=== PATIENT | female | born 1985 | race Caucasian/White ===

== ENCOUNTER 2016-11-12 12:02 | Emergency (ER) | payer MEDICARE, MEDICAID ==
[~2016-11-12] VITALS: Ht 157.5 cm; Wt 99.8 kg
[2016-11-12] MEDS: LIDO:MAALOX:DONNATAL 1:1:1 15 ML SINGLE DOSE SWSW ONE ×2 (13:00→13:24)
[2016-11-12] MEDS ORDERED: ONDANSETRON ODT 4 MG TAB.RAPDIS PO ONE (13:00)
[2016-11-12 13:05] LABS: NEG OBC UR NEG; POS OBC UR POS
[2016-11-12 13:06] LABS: BILIRUBIN,URINE NEGATIVE (NEG); GLUCOSE,URINE NEGATIVE (NEG); NITRITE,URINE NEGATIVE (NEG); PH,URINE 6.5; PROTEIN,URINE NEGATIVE (NEG-TRACE)
[2016-11-12 13:21] LABS: BACTERIA,URINE 0 /HPF (0-FEW); RBC,URINE 0 /HPF (0-2); SQUAMOUS EPITHELIAL CELL,UR MANY /LPF; WBC,URINE 0 /HPF (0-4)
[2016-11-12] MEDS ORDERED: ONDA4TAB10 SL (13:40)
--- NOTE | 2016-11-12 13:40 | PHYS DOC ---
Past Medical History Past Medical History: No Pertinent History Past Surgical History: Other Additional Past Surgical Histo: ear tubes Alcohol Use: Occasionally Drug Use: None Adult General Chief Complaint Chief Complaint: ABDOMINAL PAIN HPI HPI Patient is a 31 year old female who presents with 2 days of sore throat, rhinorrhea, chills and dry cough. Had 2 episodes of emesis this morning associated with crampy abdominal pain. Notes symptoms are improving since last emesis. Has mild nausea and abdominal pain now. She denies measured fever, diarrhea, dysuria, hematuria, chest pain, dyspnea, sick contacts. Review of Systems Review of Systems Constitutional: Denies measured fever [] Eyes: Denies change in visual acuity, redness, or eye pain [] HENT: Denies nasal congestion [] Respiratory: Denies shortness of breath [] Cardiovascular: No additional information not addressed in HPI [] GI: Denies bloody stools or diarrhea [] : Denies dysuria or hematuria [] Musculoskeletal: Denies back pain or joint pain [] Integument: Denies rash or skin lesions [] Neurologic: Denies headache, focal weakness or sensory changes [] Endocrine: Denies polyuria or polydipsia [] Current Medications Current Medications Current Medications Medications (Trade) Dose Ordered Sig/Lm Start Time Stop Time Status Last Admin Dose Admin Multi-Ingredient Mouthwash/Gargle (Gi Cocktail Single Dose) 15 ml 1X ONCE 11/12/16 13:00 11/12/16 13:02 DC Ondansetron HCl (Zofran Odt) 4 mg 1X ONCE 11/12/16 13:00 11/12/16 13:02 DC 11/12/16 13:24 4 MG Potassium Chloride (Klor-Con) 40 meq 1X ONCE 11/12/16 13:45 11/12/16 13:46 DC 11/12/16 13:50 40 MEQ Allergies Allergies Allergies Coded Allergies Type Severity Reaction Last Updated Verified Penicillins Allergy Severe throat swelling 11/12/16 Yes Physical Exam Physical Exam Constitutional: Well developed, well nourished, no acute distress, non-toxic appearance. [] HENT: Normocephalic, atraumatic, bilateral external ears normal, oropharynx moist, no oral exudates, nose normal. [] Eyes: PERRLA, EOMI. [] Neck: Normal range of motion, supple. [] Cardiovascular:Heart rate regular rhythm [] Lungs & Thorax: Bilateral breath sounds clear to auscultation [] Abdomen: Bowel sounds normal, soft, no tenderness. [] Skin: Warm, dry, no erythema, no rash. [] Back: No tenderness, no CVA tenderness. [] Extremities: No tenderness, ROM intact, no edema. [] Neurologic: Alert and oriented X 3, normal motor function, normal sensory function, no focal deficits noted. [] Psychologic: Affect normal, judgement normal, mood normal. [] Current Patient Data Vital Signs Vital Signs Date Time Temp Pulse Resp B/P Pulse Ox O2 Delivery O2 Flow Rate FiO2 11/12/16 14:22 96 16 130/79 99 Room Air 11/12/16 12:42 98.1 98.1 Lab Values Laboratory Tests Test 11/12/16 12:45 11/12/16 13:25 Urine Collection Type Unknown Urine Color Yellow Urine Clarity Clear Urine pH 6.5 Urine Specific [place] 1.025 Urine Protein Negativemg/dL (NEG-TRACE) Urine Glucose (UA) Negativemg/dL (NEG) Urine Ketones (Stick) Negativemg/dL (NEG) Urine Blood Negative (NEG) Urine Nitrite Negative (NEG) Urine Bilirubin Negative (NEG) Urine Urobilinogen Dipstick 1.0mg/dL (0.2 mg/dL) Urine Leukocyte Esterase Negative (NEG) Urine RBC 0/HPF (0-2) Urine WBC 0/HPF (0-4) Urine Squamous Epithelial Cells Many/LPF Urine Bacteria 0/HPF (0-FEW) Urine Mucus Marked/LPF Urine Test Negative (NEG) POC Hemoglobin 11.6g/dL (12-15) L POC Hematocrit 34% (36-40) L POC Sodium 143mmol/L (135-145) POC Potassium 3.3mmol/L (3.5-5.0) L POC Chloride 102mmol/L (98-110) POC Total CO2 27mmol/L (23-32) Anion Gap 18mmol/L (6-14) H POC Blood Urea Nitrogen 6mg/dL (8-26) L POC Creatinine 0.5mg/dL (0.5-1.4) Glucose Level 98mg/dL (70-99) POC Ionized Calcium (Carolin) 1.16mmol/L (1.13-1.32) Laboratory Tests 11/12/16 13:25 Course & Med Decision Making Course & Med Decision Making Pertinent Labs and Imaging studies reviewed. (See chart for details) She appears well on exam. Has mild hypokalemia that was replaced po. She is feeling better after medications. Return precautions given. She understood and agrees with plan. Dragon Disclaimer Dragon Disclaimer This electronic medical record was generated, in whole or in part, using a voice recognition dictation system. Departure Departure Impression: Primary Impression: Nausea and vomiting Additional Impression: Abdominal pain Disposition: HOME, SELF-CARE Condition: STABLE Referrals: NO PCP (PCP) Patient Instructions: Nausea and Vomiting, [id number] Additional Instructions: Take Zofran as needed for nausea. Take Tylenol or ibuprofen as needed for pain. Follow-up with your primary care doctor. Return for any concerns. Scripts Ondansetron (Zofran Odt)4 Mg Tab.rapdis1 Tab SL Q8HRS #10 TAB Prov:Faustino GUTIERREZ MD 11/12/16 Problem Qualifiers Primary Impression: Nausea and vomiting Vomiting type: unspecified Vomiting Intractability: non-intractable Qualified Code: R11.2 - Nausea with vomiting, unspecified Additional Impression: Abdominal pain Abdominal location: left lower quadrant Qualified Code: R10.32 - Left lower quadrant pain Faustino GUTIERREZ MD Nov 12, 2016 13:40
[2016-11-12] MEDS ORDERED: POTASSIUM CHLORIDE 20 MEQ TABLET.ER. PO ONE (13:45)
[2016-11-12 14:22] VITALS: BP 130/79
[2016-11-12 15:02] LABS: POTASSIUM ISTAT 3.3 mmol/L (3.5-5.0)
== END 2016-11-12 14:25 | disposition home or self-care (01) ==
LOC: ER 12:02
DX: R11.2 Nausea with vomiting, unspecified (principal); R10.32 Left lower quadrant pain; J02.9 Acute pharyngitis, unspecified; J34.89 Other specified disorders of nose and nasal sinuses; R68.83 Chills (without fever); R05 Cough; E87.6 Hypokalemia; Z88.0 Allergy status to penicillin
CPT/HCPCS: 80047; 81001; 81025; 99283; Q0162; 99284

== ENCOUNTER 2017-06-19 10:35 | Emergency (ER) | payer MEDICARE, MEDICAID ==
[~2017-06-19] VITALS: Ht 167.6 cm; Wt 117.9 kg
[~2017-06-19 10:35] MED LIST: ONDA4TAB10 SL
--- NOTE | 2017-06-19 11:23 | PHYS DOC ---
Past Medical History Past Medical History: Asthma Past Surgical History: Other Additional Past Surgical Histo: ear tubes Alcohol Use: Occasionally Drug Use: Marijuana Adult General Chief Complaint Chief Complaint: SHORTNESS OF BREATH HPI HPI Patient is a 31 year old F who presents with cough and a sore throat. Patient states that for the past day she had a productive cough and sore throat has smoking history. Patient also complains that her ears hurt bilaterally. Patient states he did transiently be . Patient denies any fevers. Patient denies any chest pain. Patient has no other complaints. Review of Systems Review of Systems GEN: Denies fevers, chills, sweats HEENT: sore throat, ear pain CV: Denies chest pain RESP: cough GI: Denies n/v/d NEURO: Denies confusion, dizziness MSK: Denies weakness, joint pain/swelling Allergies Allergies Allergies Coded Allergies Type Severity Reaction Last Updated Verified Penicillins Allergy Severe throat swelling 11/12/16 Yes Physical Exam Physical Exam GEN.: No apparent distress. Alert and oriented. HEENT: Head is normocephalic, atraumatic, TMs clear bilaterally, posterior pharynx not erythematous and no swollen tonsils with no exudate NECK: Supple. LUNGS: CTAB. HEART: RRR, S1, S2 present. Peripheral pulses intact ABDOMEN: Soft, nontender. Positive bowel sounds. EXTREMITIES: Without any cyanosis. NEUROLOGIC: Normal speech, normal tone PSYCHIATRIC: Normal affect, normal mood. SKIN: No ulcerations Current Patient Data Vital Signs Vital Signs Date Time Temp Pulse Resp B/P (MAP) Pulse Ox O2 Delivery O2 Flow Rate FiO2 06/19/17 11:25 99.1 86 20 99 Room Air 99.1 06/19/17 10:40 148/62 (90) Lab Values Laboratory Tests Test 06/19/17 10:06 06/19/17 11:15 06/19/17 11:30 POC Urine HCG, Qualitative Hcg positive (Negative) Urine Collection Type Unknown Urine Color [place] Urine Clarity Clear Urine pH 5.5 Urine Specific [place] 1.025 Urine Protein Negative mg/dL (NEG-TRACE) Urine Glucose (UA) Negative mg/dL (NEG) Urine Ketones (Stick) Negative mg/dL (NEG) Urine Blood Negative (NEG) Urine Nitrite Positive (NEG) Urine Bilirubin Negative (NEG) Urine Urobilinogen Dipstick 0.2 mg/dL (0.2 mg/dL) Urine Leukocyte Esterase Trace (NEG) Urine RBC Rare /HPF (0-2) Urine WBC 1-4 /HPF (0-4) Urine Squamous Epithelial Cells Few /LPF Urine Bacteria Few /HPF (0-FEW) Urine Mucus Slight /LPF Group A Streptococcus Rapid Negative (NEGATIVE) EKG EKG [] Radiology/Procedures Radiology/Procedures [] Course & Med Decision Making Course & Med Decision Making Pertinent Labs and Imaging studies reviewed. (See chart for details) ED course: Patient was seen and examined emergency room patient states she might be therefore a printed test ordered and a rapid strep screen 1221: Patient was reexamined and explained the patient that since she is we will forego the chest x-ray and treat her with antibiotics for URI however the patient has anaphylaxis to penicillin therefore will prescribe her a Z-Donnie. 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 MDM: After reviewing the chart, CC/HPI/PMH, physical exam, [lab results], I do not believe the patient has a significant rust or infection warranting further workup and admission at this time. Patient is however is having no regnancy-related complications therefore recommended outpatient follow-up and joint for further evaluation and management and pending of care. Patient stable for discharge. Patient be treated with a Z-Donnie for her URI. Additional verbal discharge instructions were provided to the patient and that if symptoms get worse or any new symptoms arise that are worrisome to the patient she is to return to the emergency room immediately [] Dragon Disclaimer Dragon Disclaimer This electronic medical record was generated, in whole or in part, using a voice recognition dictation system. 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
[2017-06-19 11:25] VITALS: BP 154/87
[2017-06-19 11:27] LABS: BILIRUBIN,URINE NEGATIVE (NEG); GLUCOSE,URINE NEGATIVE (NEG); NITRITE,URINE POSITIVE (NEG); PH,URINE 5.5; PROTEIN,URINE NEGATIVE (NEG-TRACE); UROBILINOGEN,URINE 0.2 mg/dL (0.2 mg/dL)
[2017-06-19 11:51] LABS: BACTERIA,URINE FEW /HPF (0-FEW); RBC,URINE RARE /HPF (0-2); SQUAMOUS EPITHELIAL CELL,UR FEW /LPF
[2017-06-19 11:55] LABS: NEGATIVE OBC STREP NEG; POSITIVE OBC STREP POS
--- NOTE | 2017-06-19 11:59 | EKG ---
[facility] [address] [place] [address] Test Date: 2017-06-19 Test Time: 10:49:06 Pat Name: GAGE DAVIS Department: Room: Gender: F Category Planner: : 1985 Requested By: JB MANN Order Number: [id number] Reading MD: Lenin Vivar Measurements Intervals [place] Rate: 97 P: 64 AK: 122 QRS: 74 QRSD: 78 T: 23 QT: 352 QTc: 451 Interpretive Statements SINUS RHYTHM Electronically Signed On 06-24-2017 8:44:11 CDT by Lenin Vivar
[2017-06-19] MEDS ORDERED: AZIT250T PO (12:28)
--- NOTE | 2017-06-24 09:10 | VNOTE ---
CALL BACK NOTE CALL BACK Microbiology 06/19/17 Throat Culture - Final, Complete 06/19/17 - Final, Complete 06/19/17 Urine Culture - Final, Complete 06/19/17 Urine Culture Result 1 (MARIKA) - Final, Complete 06/19/17 Antimicrobic Susceptibility - Final, Complete Patient was notified at [phone] in regards to UTI, patients prescription [facility] to [facility] [address] [facility]. Macrobid 100 mg BID times 7 days. ELSI CASANOVA APPLICATIONS SYSTEMS ANALYST Jun 24, 2017 09:10
== END 2017-06-19 12:35 | disposition home or self-care (01) ==
LOC: ER 10:35
DX: J06.9 Acute upper respiratory infection, unspecified (principal); J45.909 Unspecified asthma, uncomplicated; Z33.1 Pregnant state, incidental; Z88.0 Allergy status to penicillin
CPT/HCPCS: 81001; 81025; 87070; 87086; 87880; 93005; 99285-25

== ENCOUNTER 2017-10-11 01:28 | Emergency (ER) | payer MEDICARE, MEDICAID ==
[2017-10-11 02:17] LABS: BILIRUBIN,URINE SMALL (NEG); GLUCOSE,URINE NEGATIVE (NEG); NITRITE,URINE NEGATIVE (NEG); PROTEIN,URINE NEGATIVE (NEG-TRACE)
[2017-10-11 02:19] LABS: ADD MAN DIFF? NO
[2017-10-11 02:22] LABS: BARBITURATES NEG (NEG); BENZODIAZEPINES NEG (NEG); CANNABINOIDS NEG (NEG); COCAINE NEG (NEG); METHADONE NEG (NEG); OPIATES NEG (NEG); PHENCYCLIDINE NEG (NEG)
[2017-10-11 02:23] LABS: BASO % 1 % (0-3); EOS % 0 % (0-3); LYMPH % 25 % (24-48); MEAN CORPUSCULAR HEMOGLOBIN 25 pg (25-35); MEAN CORPUSCULAR HGB CONC 32 g/dL (31-37); MEAN CORPUSCULAR VOLUME 79 fL (79-100); MONO % 4 % (0-9); NEUT % 71 % (31-73); PLATELET COUNT 178 x10^3/uL (140-400); RED CELL DISTRIBUTION WIDTH 17.4 % (11.5-14.5); WHITE BLOOD COUNT 8.3 x10^3/uL (4.0-11.0)
[2017-10-11 02:25] LABS: ETHANOL, URINE NEG (NEG)
[2017-10-11 02:33] LABS: BACTERIA,URINE MODERATE /HPF (0-FEW); RBC,URINE 0 /HPF (0-2); SQUAMOUS EPITHELIAL CELL,UR MANY /LPF
[2017-10-11 02:34] LABS: ANION GAP 12 (6-14); BLOOD UREA NITROGEN 6 mg/dL (7-20); BUN/CREATININE RATIO 15 (6-20); CALCIUM 8.9 mg/dL (8.5-10.1); CARBON DIOXIDE 25 mmol/L (21-32); CHLORIDE 107 mmol/L (98-107); CREATININE 0.4 mg/dL (0.6-1.0); GFR 186.2; GLUCOSE 110 mg/dL (70-99); POTASSIUM 3.5 mmol/L (3.5-5.1); SODIUM 144 mmol/L (136-145)
[2017-10-11 02:38] LABS: ETHANOL < 10 mg/dL (0-10)
[2017-10-11 02:40] LABS: ALBUMIN 2.7 g/dL (3.4-5.0); ALBUMIN/GLOBULIN RATIO 0.7 (1.0-1.7); ALK PHOS 49 U/L (46-116); ALT (SGPT) 43 U/L (14-59); AST (SGOT) 27 U/L (15-37); TOTAL BILIRUBIN 0.3 mg/dL (0.2-1.0); TOTAL PROTEIN 6.8 g/dL (6.4-8.2)
== END 2017-10-11 04:12 | disposition home or self-care (01) ==
LOC: ER 01:28
DX: O26.892 Other specified pregnancy related conditions, second trimester (principal); R41.82 Altered mental status, unspecified; J45.909 Unspecified asthma, uncomplicated; W18.39XA Other fall on same level, initial encounter; Y93.89 Activity, other specified; Y99.8 Other external cause status; Y92.89 Other specified places as the place of occurrence of the external cause
CPT/HCPCS: 36415; 80053; 80307; 81001; 84702; 85025; 87086; 99284; G0480